=== PATIENT | female | born 1950 | race Caucasian/White ===

== ENCOUNTER → 2017-11-22 | Outpatient (CLI) | payer MEDICARE, BC ==
[2014-03-27 10:26] VITALS: BMI 21.1
[~2017-11-22] MED LIST: ACIPHX20PT PO; LANS30CA63 PO; LIS10 PO; MOMR; MON10 PO; OXYC-374 PO; PAN40 PO; PROM-110 PO; RIV10 PO; SERT-182 PO; [UNRECOGNIZED DRUG - CODE] PO
--- NOTE | 2017-11-22 11:10 | EKG ---
[place] [facility] [place] Fidencio MCDERMOTT : [id number] MR: [id number] V: [id number] EXAM DATE: ORDERING PHYSICIAN: KATIE WICK TECHNOLOGIST: Phillip Aguilera Reason : PREOP KNEE Blood Pressure : / mmHG Vent. Rate : 072 BPM Atrial Rate : 072 BPM P-R Int : 174 ms QRS Dur : 080 ms QT Int : 424 ms P-R-T Axes : 077 006 035 degrees QTc Int : 464 ms Sinus rhythm Possible Left atrial enlargement Possible previous septal infarct Abnormal ECG Confirmed by KIET BARCENAS ([id number]) on 11/22/2017 4:03:15 PM Referred By: DELANO Confirmed By:KIET BARCENAS
== END ==
LOC: RESP 10:19
PROVIDERS: ATTEND Anesthesiology
DX: Z01.812 Encounter for preprocedural laboratory examination (principal); Z01.810 Encounter for preprocedural cardiovascular examination; S83.242A Other tear of medial meniscus, current injury, left knee, initial encounter; S83.282A Other tear of lateral meniscus, current injury, left knee, initial encounter; M94.261 Chondromalacia, right knee; M94.262 Chondromalacia, left knee; R94.31 Abnormal electrocardiogram [ECG] [EKG]
CPT/HCPCS: 36415; 82310; 82374; 82435; 82565; 82947; 84132; 84295; 84520; 93005

== ENCOUNTER → 2017-12-01 | Outpatient (CLI) | payer MEDICARE, BC ==
[2014-03-27 10:26] VITALS: BMI 21.1
--- NOTE | 2017-12-01 18:22 | RADIOLOGY IMAGING REPORT ---
FACILITY: [facility] [place] PATIENT NAME: Fidencio Calvert : 1950 MR: [id number] V: [id number] EXAM DATE: ORDERING PHYSICIAN: BLANCHE LARSEN TECHNOLOGIST: Location: [facility] [place] Patient: Fidencio Calvert : 1950 Visit/Account:[id number] Date of Sevice: 12/01/2017 VENOUS DOPP LOW LEFT EXTREMITY HISTORY: Leg pain after recent arthroscopy. Concern for deep venous thrombus. COMPARISON: None. FINDINGS: Grayscale, duplex and color Doppler interrogation of the left lower extremity deep veins from common femoral vein to proximal calf was completed. The right common femoral vein was evaluated using simila r technique. Common femoral vein - Negative. Femoral vein - Negative. Deep femoral vein - Negative. Popliteal vein - Negative. Visualized deep calf veins - Negative. Popliteal fossa: Negative. Contralateral (right) common femoral vein: Negative. IMPRESSION: No evidence of acute deep venous thrombosis in the visualized veins of the left lower extremity. Report Dictated By: Brad Raman at 12/01/2017 6:17 PM Report E-Signed By: Brad Raman at 12/01/2017 6:18 PM WSN:[id number]
== END ==
LOC: US 17:18
PROVIDERS: ATTEND Orthopaedic Surgery
DX: M79.605 Pain in left leg (principal); Z98.890 Other specified postprocedural states

== ENCOUNTER 2018-01-05 10:00 | Outpatient (RCR) | payer MEDICARE, BC ==
[2014-03-27 10:26] VITALS: BMI 21.1
--- NOTE | 2017-12-11 13:48 | PT INITIAL EVALUATION ---
MEDICAL DIAGNOSIS: Vertigo TREATMENT DIAGNOSIS: Vestibular hypofunction, cervicalgia DATE OF ONSET: 11/27/17 SUBJECTIVE: Fidencio Calvert (Diane) presents to PT for dizziness with rolling L in bed, insidious onset two weeks ago. She has been diagnosed wtih a sinus infection, and started antibiotics 12/08/17. She denies spinning. She reports her neck has become painful as her dizziness came on, disrupting sleep, making heavy lifting too painful to do, and affects reading. Neck Disability Index 40% . Pain location is L upper neck and described as ache. Pain scale is 7 on a ten point pain scale. Pain is worse with cervical extension, driving, trying to sleep, read and better with rest. REHAB PROBLEM LIST: Decreased ROM, Altered sleep, Pain, Decreased ADL's PREVIOUS MEDICAL HISTORY: BPPV, HTN, IBS OCCUPATION: Retired counselor. Kelly relates she isn't reaching into high shelves due to dizziness. OBJECTIVE: Posture: Midline head, no nystagmus. ROM: Cervical A/PROM flexion 25%/75%, extension 25%/75%, rotation L 50%/75%, dizziness, R rotation 75%/75%. Limited AROM is from patient's concerns for provoking dizziness. Palpation: Higher tone L SCM, myofascial restrictions R suboccipital region. Special Tests: Negative Rafael-Hallpike. L upper to mid-cervical facet loading reproduces dizziness, hypomobile L cervical facets. Negative modified Romberg. Mobility: Hypomobile L cervical pillar. Gait: Normal line of progression. Balance: Increased postural sway A/P with eyes closed. Tandem stand with increased trunk shimmy. ASSESSMENT: Fidencio Calvert presents more as sinus infection affecting her inner ear with vestibular hypofunction and cervicalgia with afferent sensory dysfunction from the upper cervical facets. She did well with manual therapy, heat to normalize cervical mobility and muscle tone, reduce symptoms. A brief course of PT can benefit Kelly to tolerate ADL's with cervical extension. Short Term Goals 2 weeks: Kelly drives, sleeps and reaches overhead without dizziness and cervical pain 2-3/. Patient's Goals No dizziness with rolling in bed, reaching overhead, no neck pain disrupting sleep. PLAN: Patient to be seen for Manual Therapy Ice/Heat Range of Motion Spinal Stabilization Stretching Electrical Stim Posture/Body mechanics 2x/Week for 2 Weeks Thank you for this referral. If you have any questions, comments, or concerns about this report or plan, please contact me at . [facility]
--- NOTE | 2018-01-05 11:07 | PT PLAN OF CARE ---
Physician: Dr. Jamison Vizcarra Patient is being seen: 1-2x/week Therapist: Kavya Bell, PT Medical Diagnosis: Vertigo Treatment Diagnosis: Vestibular hypofunction, cervicalgia Date of Onset: 11/27/17 Date of Initial Evaluation: 12/11/17 Date patient was last seen: 01/05/18 Number of treatments: 5 Number of cancellations/No shows: 3 INTERVENTIONS: Balance training, Neuro Re-education, Manual Therapy, Range of Motion, Stretching, HEP GOALS: 2 weeks: Kelly drives, sleeps and reaches overhead without dizziness and cervical pain 2-12/30. all met PATIENT'S GOAL: No dizziness with rolling in bed, reaching overhead, no neck pain disrupting sleep. all met Patient Compliance: Excellent Prognosis: Excellent Reasons for discontinuing therapy: S: After Lazaro's canalith repositioning, Kelly's dizziness when turning left in bed resolved. She relates she's returned to prior level of function, no cervical pain disrupting sleep, is doing neck exercises at home and denies cervical pain. Neck disability index 6% impairment. Posture: Midline head, no nystagmus. ROM: Cervical AROM flexion 75%, extension 75%, rotation B 75%, no symptoms. Gait: Normal line of progression during gait with head motion, eyes shut, backwards eyes open. Special Tests: Negative Hallpike. Normal postural control with static stand on Airex and firm with eyes closed. Exaggerated ankle sway with mild retro balance disturbance. Mobility: Normal L cervical pillar mobility. A/P: Vestibular habituation completed except ankle sway, which can be addressed with brief HEP, prior level of function regained. I'll DC PT. Thank you. EVELYN
== END 2018-01-05 13:06 | disposition home or self-care (01) ==
LOC: PT 10:00
PROVIDERS: ATTEND Family Medicine
DX: H81.10 Benign paroxysmal vertigo, unspecified ear (principal); M54.2 Cervicalgia; H81.90 Unspecified disorder of vestibular function, unspecified ear; I10 Essential (primary) hypertension; K58.9 Irritable bowel syndrome, unspecified
CPT/HCPCS: 97162

== ENCOUNTER 2018-02-16 15:19 | Outpatient (RCR) | payer MEDICARE, BC ==
[2014-03-27 10:26] VITALS: BMI 21.1
--- NOTE | 2018-02-16 17:22 | PT INITIAL EVALUATION ---
MEDICAL DIAGNOSIS: Vertigo TREATMENT DIAGNOSIS: L posterior canal BPPV, R 26.89 Imbalance DATE OF ONSET: 02/16/18 SUBJECTIVE: Jackson Calvert presents to PT for a new bout of BPPV. She turned L in bed this morning and reports immediate L spinning vertigo. She hasn't been able to drive, do housework or charting today due to this vertigo. She was treated by me for L BPPV 12/11/17 with resolutions of symptoms then balance training and was discharged to [facility] 12/2017.. . Pain location is and described as . Pain scale is on a ten point pain scale. Pain is worse with and better with . REHAB PROBLEM LIST: Decreased Balance, Decreased Function, Altered Gait PREVIOUS MEDICAL HISTORY: BPPV, HTN, IBS OCCUPATION: Counselor. OBJECTIVE: ROM: Cervical AROM rotation B 60%, flexion WNL, minimal extension due to symptoms. Palpation: Higher tone L SCM. Special Tests: Positive L Hallpike for upbeating torsional nystagmus, facial flushing, saccade with eye tracking to the L horizontal field, + VOR x1/2. Mobility: Independent. Gait: Tinetti Gait and Balance 25/28, an 11% impairment. Mild weaving in gait, L>R, minimal head motion, slow cadance. Balance: Increased postural sway L>R with static stand on Airex, LOB L with eyes closed. ASSESSMENT: Jackson Calvert presents with L posterior canal BPPV affecting gait , balance, function. She had resolution of symptoms with Lazaro's maneuver and is started on eye tracking HEP. Her gait was more normal after the session but balance was still altered. Short Term Goals 4 weeks: Kelly turns in bed without vertigo, normal vestibular ocular reflex, normal line of progression in gait. Patient's Goals Stop the vertigo and regain balance. PLAN: Patient to be seen for Manual Therapy, Range of Motion/Stretching, Neuromuscular Re-ed with vestibular habituation and integration, Gait Trg/ Balance Trg, Home Exercise Program 2x/Week for 4 Weeks Thank you for this referral. If you have any questions, comments, or concerns about this report or plan, please contact me at . [facility]
--- NOTE | 2018-02-21 15:27 | PT PLAN OF CARE ---
Physician: Dr. Jamison Vizcarra Patient is being seen: eval, no treatment today Therapist: Kavya Bell Medical Diagnosis: Vertigo Treatment Diagnosis: L posterior canal BPPV, R 26.89 Imbalance Date of Onset: 02/16/18 Date of Initial Evaluation: 02/16/18 Date patient was last seen: 02/21/18 Number of treatments: 2 Number of cancellations/No shows: 0 INTERVENTIONS: Neuromuscular Re-ed, Home Exercise Program GOALS: 4 weeks: Kelly turns in bed without vertigo, normal vestibular ocular reflex, normal line of progression in gait. all met PATIENT'S GOAL: Stop the vertigo and regain balance. both met Patient Compliance: Excellent Prognosis: Excellent Reasons for discontinuing therapy: S: Kelly returns to PT today relating her vertigo is fully resolved, she can turn in bed, do all ADL's without vertigo or dizziness. O: Negative L Hallpike, normal balance reactions on even and uneven surfaces. Mild postural sway with VOR x2 on Airex, otherwise normal postural sway. Tinetti Gait and Balance . A/P: BPPV is resolved and vestibular reflexes are integrated. No need for PT today. DC PT. Thank you. EVELYN
== END 2018-02-16 18:00 | disposition home or self-care (01) ==
LOC: PT 15:19
PROVIDERS: ATTEND Family Medicine
DX: H81.10 Benign paroxysmal vertigo, unspecified ear (principal); I10 Essential (primary) hypertension; K58.9 Irritable bowel syndrome, unspecified
CPT/HCPCS: 97161

== ENCOUNTER → 2018-07-20 | Outpatient (CLI) | payer MEDICARE, BC ==
[2014-03-27 10:26] VITALS: BMI 21.1
== END ==
LOC: RESP 19:53
PROVIDERS: ATTEND Physician Assistant Medical
DX: G47.33 Obstructive sleep apnea (adult) (pediatric) (principal); G47.61 Periodic limb movement disorder